=== PATIENT | male | born 1970 | race Caucasian/White ===

== ENCOUNTER 2017-02-21 21:52 | Emergency (ER) | payer OTHER ==
[~2017-02-21] VITALS: Ht 177.8 cm; Wt 79.5 kg
[2017-02-21 21:53] VITALS: Ht 177.8 cm; Wt 79.5 kg
[2017-02-22 01:15] LABS: ADD SCAN DIFF NO
[2017-02-22 01:34] LABS: BASOPHIL # 0.1 10^3/ul (0.0-0.1); EOSINOPHILS # 0.4 10^3/ul (0.0-0.5); EOSINOPHILS % 4.2 % (0.0-7.0); HEMATOCRIT 47.8 % (42.0-52.0); HEMOGLOBIN 16.5 g/dl (14.0-18.0); LYMPHOCYTES # 3.6 10^3/ul (0.8-2.9); LYMPHOCYTES % 36.8 % (15.0-51.0); MEAN CORPUSCULAR HEMOGLOBIN 30.4 pg (29.0-33.0); MEAN CORPUSCULAR HGB CONC 34.5 g/dl (32.0-37.0); MEAN CORPUSCULAR VOLUME 88.2 fl (82.0-101.0); MEAN PLATELET VOLUME 10.4 fl (7.4-10.4); MONOCYTE # 0.6 10^3/ul (0.3-0.9); MONOCYTES % 6.3 % (0.0-11.0); NEUTROPHILS % 51.4 % (39.0-77.0); PLATELET COUNT 263 10^3/UL (140-415); RED BLOOD COUNT 5.42 10^6/ul (4.70-6.10); RED CELL DISTRIBUTION WIDTH 12.6 % (11.5-14.5); WHITE BLOOD COUNT 9.7 10^3/ul (4.8-10.8)
[2017-02-22 01:40] LABS: INR 0.92; PROTIME 12.4 Sec (12.2-14.2)
[2017-02-22 01:41] LABS: PARTIAL THROMBOPLASTIN TIME 27.7 Sec (25.0-35.0)
[2017-02-22 01:43] LABS: ALANINE AMINOTRANSFERASE 47 IU/L (13-69); ALBUMIN 4.8 g/dl (3.3-4.9); ALKALINE PHOSPHATASE 64 IU/L (42-121); ANION GAP 13 (8-16); ASPARTATE AMINO TRANSFERASE 33 IU/L (15-46); BILIRUBIN,INDIRECT 0.2 mg/dl (0-1.1); BILIRUBIN,TOTAL 0.2 mg/dl (0.2-1.3); BLOOD UREA NITROGEN 20 mg/dl (7-20); CALCIUM 9.3 mg/dl (8.4-10.2); CARBON DIOXIDE 26 mmol/L (21-31); CHLORIDE 104 mmol/L (97-110); CREATININE 1.19 mg/dl (0.61-1.24); GLUCOSE 86 mg/dl (70-220); POTASSIUM 3.8 mmol/L (3.5-5.1); SODIUM 139 mmol/L (135-144)
[2017-02-22 01:54] LABS: B-TYPE NATRIURETIC PEPTIDE < 11 PG/ML (0-125); TROPONIN-I < 0.012 ng/ml (0.00-0.12)
[2017-02-22] MEDS ORDERED: PRED20TA PO (02:14)
[2017-02-22] MEDS ORDERED: ALBU18HF INHALATION (02:14)
--- NOTE | 2017-02-22 02:14 | ERD ---
ER Documentation Chief Complaint Date/Time DATE: 02/22/17 TIME: 02:12 Chief Complaint SUDDEN INTERMITTENT CP DESCRIBED SHARP AND TIGHT WITH SOB X 2 DAYS HPI This is a 46-year-old male that shortness of breath and cough for the past 2 days. He noticed sharp chest pain earlier today. This happened after a cough. No nausea no vomiting no chills. No other current complaints. Pain is mild to moderate intensity reproducible to the touch per the patient worse with movement. ROS All systems reviewed and are negative except as per history of present illness. Allergies Allergies: Coded Allergies: No Known Allergy (Unverified , 02/22/17) PMhx/Soc History of Surgery: Yes (appendectomy) Anesthesia Reaction: No Hx Neurological Disorder: No Hx Respiratory Disorders: No Hx Cardiac Disorders: No Hx Psychiatric Problems: No Hx Miscellaneous Medical Probl: No Hx Alcohol Use: No Hx Substance Use: No Hx Tobacco Use: Yes (quit) Smoking Status: Former smoker Physical Exam Vitals Vital Signs Date Time Temp Pulse Resp B/P Pulse Ox O2 Delivery O2 Flow Rate FiO2 02/22/17 00:25 75 16 116/76 98 Room Air 02/21/17 21:53 96.5 93 18 136/87 98 Physical Exam Const: [] Head: Atraumatic Eyes: Normal Conjunctiva ENT: Normal External Ears, Nose and Mouth. Neck: Full range of motion..~ No meningismus. Resp: Clear to auscultation bilaterally Cardio: Regular rate and rhythm, no murmurs Abd: Soft, non tender, non distended. Normal bowel sounds Skin: No petechiae or rashes Back: No midline or flank tenderness Ext: No cyanosis, or edema Neur: Awake and alert Psych: Normal Mood and Affect Result Diagram: 02/22/17 0037 02/22/17 0037 Results 24 hrs Laboratory Tests Test 02/22/17 00:37 White Blood Count 9.710^3/ul Red Blood Count 5.4210^6/ul Hemoglobin 16.5g/dl Hematocrit 47.8% Mean Corpuscular Volume 88.2fl Mean Corpuscular Hemoglobin 30.4pg Mean Corpuscular Hemoglobin Concent 34.5g/dl Red Cell Distribution Width 12.6% Platelet Count 41884^3/UL Mean Platelet Volume 10.4fl Neutrophils % 51.4% Lymphocytes % 36.8% Monocytes % 6.3% Eosinophils % 4.2% Basophils % 1.0% Nucleated Red Blood Cells % 0.0/100WBC Neutrophils # 5.010^3/ul Lymphocytes # 3.610^3/ul Monocytes # 0.610^3/ul Eosinophils # 0.410^3/ul Basophils # 0.110^3/ul Nucleated Red Blood Cells # 0.010^3/ul Prothrombin Time 12.4Sec Prothrombin Time Ratio 1.0 INR International Normalized Ratio 0.92 Activated Partial Thromboplast Time 27.7Sec Sodium Level 139mmol/L Potassium Level 3.8mmol/L Chloride Level 104mmol/L Carbon Dioxide Level 26mmol/L Anion Gap 13 Blood Urea Nitrogen 20mg/dl Creatinine 1.19mg/dl Glucose Level 86mg/dl Calcium Level 9.3mg/dl Total Bilirubin 0.2mg/dl Direct Bilirubin 0.00mg/dl Indirect Bilirubin 0.2mg/dl Aspartate Amino Transf (AST/SGOT) 33IU/L Alanine Aminotransferase (ALT/SGPT) 47IU/L Alkaline Phosphatase 64IU/L Troponin I < 0.012ng/ml B-Type Natriuretic Peptide < 11PG/ML Total Protein 8.0g/dl Albumin 4.8g/dl Globulin 3.20g/dl Albumin/Globulin Ratio 1.50 Procedures/MDM EKG: Rate/Rhythm: [Normal Sinus Rhythm] QRS, ST, T-waves: [No changes consistent w/ acute ischemia] Impression: [No evidence of ischemia or arrhythmia] Chest X-ray 1V Interpreted by me: Soft Tissue: No acute abnormalities Bones: No acute abnormalities Mediastinum/Cardiac Silhouette/Lungs: [No acute abnormalities] Patient's thoracic symptoms have stabilized while in the department and are stable for outpatient follow up. Exam and work up not consistent w/ ischemia, arrhythmia, PE or dissection. Symptomology consistent with acute bronchitis. At this point is clinically stable for outpatient management. Discharged home with albuterol along with prednisone. Return for worsening symptoms. Departure Diagnosis: Primary Impression: Chest pain Chest pain type: chest pain on breathing Qualified Code: R07.1 - Chest pain on breathing Additional Impression: Acute bronchitis Bronchitis organism: unspecified organism Qualified Code: J20.9 - Acute bronchitis, unspecified organism Condition: Stable NADIA COBOS Feb 22, 2017 02:14
[2017-02-22 02:33] VITALS: BP 106/72; PULSE 70; RESP 16; TEMP 97.9
--- NOTE | 2017-02-22 03:25 | RADRPT ---
PROCEDURE: XR Chest. CLINICAL INDICATION: Chest Pain. TECHNIQUE: Portable single view of the chest COMPARISON: None. FINDINGS: The cardiomediastinal silhouette appears within normal limits. The lungs are clear and no pleural e ffusion or significant edema is seen. No bony abnormality is seen. IMPRESSION: No definite acute pulmonary disease. RPTAT: [facility]BE Maddie Poe Physician Date Time Electronically viewed and signed by Maddie Poe, Physician on 02/22/2017 03:25 LE/
== END 2017-02-22 02:34 | disposition home or self-care (01) ==
LOC: E/R 21:52
DX: R07.1 Chest pain on breathing (principal); J20.9 Acute bronchitis, unspecified; R06.02 Shortness of breath; Z87.891 Personal history of nicotine dependence
CPT/HCPCS: 36415; 71010; 80053; 83880; 84484; 85025; 85610; 85730; 93005; Z7502

== ENCOUNTER 2017-04-10 14:32 | Emergency (ER) | payer OTHER ==
[~2017-04-10] VITALS: Ht 177.8 cm; Wt 77.0 kg
[~2017-04-10 14:32] MED LIST: ALBU18HF INHALATION; PRED20TA PO
[2017-04-10 14:34] VITALS: Ht 177.8 cm; Wt 77.0 kg
--- NOTE | 2017-04-10 14:59 | ERD ---
ER Documentation Chief Complaint Date/Time DATE: 04/10/17 TIME: 14:58 Chief Complaint COUGH , SOB X 1 WEEK HPI Patient is a 46-year-old male who is complaining of dry cough that he has had for 1 week. He also admits to shortness of breath. His cough is worse at night. He states he feels like he has had a fever but he does not think he has had one. Denies any hemoptysis or unplanned weight loss. Denies any night sweats. He has not taken any medications for this. He has had similar symptoms in the past and diagnosed with bronchitis. ROS All systems reviewed and are negative except as per history of present illness. Medications Home Meds Active Scripts Promethazine HCl/Codeine (Prometh-Codein 6.25-10 mg/5 ml) 5 Ml Syrup, 5 ML PO QHS, #4 OZ Prov:ALEJANDRO AREVALO PA-C 04/10/17 Azithromycin* (Zithromax*) 250 Mg Tablet, 250 MG PO .ZPACK DIRECTED, #6 TAB TAKE 500 MG (2 TABS) THE FIRST DAY THEN 250 MG (1 TAB) DAYS 2-5 Prov:ALEJANDRO AREVALO PA-C 04/10/17 Albuterol Sulfate* (Ventolin HFA*) 18 Gm Hfa.aer.ad, 2 PUFF INHALATION Q4H, #1 INHALER Prov:NADIA COBOS 02/22/17 Prednisone* (Prednisone*) 20 Mg Tab, 40 MG PO DAILY for 4 Days, TAB Prov:NADIA COBOS 02/22/17 Allergies Allergies: Coded Allergies: No Known Allergy (Unverified , 02/22/17) PMhx/Soc History of Surgery: Yes (appendectomy) Anesthesia Reaction: No Hx Neurological Disorder: No Hx Respiratory Disorders: No Hx Cardiac Disorders: No Hx Psychiatric Problems: No Hx Miscellaneous Medical Probl: No Hx Alcohol Use: No Hx Substance Use: No Hx Tobacco Use: Yes (quit) Smoking Status: Former smoker FmHx Family History: No diabetes Physical Exam Vitals Vital Signs Date Time Temp Pulse Resp B/P Pulse Ox O2 Delivery O2 Flow Rate FiO2 04/10/17 14:34 98.6 98 18 136/86 97 Physical Exam General: well developed, well nourished, alert, nontoxic, no distress Head: normocephalic, atraumatic Eyes: PERRL, normal conjunctiva Neck: Supple, nontender, no lymphadenopathy, no midline tenderness Oropharynx: no tonsilar erythema or edema, uvula midline, no exudates, no kissing tonsils, no drooling Respiratory: Clear to auscaultation bilaterally, speaks in full sentences, no use of accesory muscles or labored breathing, no rales, ronchi, or wheezing Cardiovascular: RRR, No murmurs GI: soft, non tender, non distended, negative murphys sign, negative mcburneys point tenderness, no cva tenderness bilaterally, no rebound or guarding Back: no midline tenderness, no step offs or bony abnormalities, sensation to light touch in tact Extremities: moving all extremities normally, normal gait, no edema Procedures/MDM 46-year-old male presents with cough and shortness of breath for a week. He is afebrile his vital signs are within normal limits. He does appear very anxious in examination room and there is most likely an anxiety component to his symptoms. Chest x-ray was ordered. X-ray unremarkable. Patient was discharged with cough syrup and a [id number] prescription for azithromycin. Recommend he only begin azithromycin if his symptoms worsen which she agrees. Recommended this patient follow up with her primary care doctor within 48 hours or return to the emergency room for any worsening of symptoms. However this time I do believe there is suitable for outpatient management. I answered all their questions and they agreed with the plan and were discharged home. Departure Diagnosis: Primary Impression: Bronchitis Condition: Stable ALEJANDRO AREVALO PA-C Apr 10, 2017 14:59
--- NOTE | 2017-04-10 16:46 | RADRPT ---
PROCEDURE: XR Chest. CLINICAL INDICATION: Cough TECHNIQUE: A single portable view of the chest was obtained. COMPARISON: 02/22/2017 FINDINGS: The cardiomediastinal silhouette is within normal limits. The lungs and pleural spaces are clear. The soft tissues and osseous structures are unremarkable. IMPRESSION: No acute cardiopulmonary disease. RPTAT: HPNM Physician Cirilo Date Time Electronically viewed and signed by Balwinder Singh Physician on 04/10/2017 16:45 /
[2017-04-10] MEDS ORDERED: AZIT250T94 PO (16:51)
[2017-04-10] MEDS ORDERED: PROM5SYR2 PO (16:51)
== END 2017-04-10 17:08 | disposition home or self-care (01) ==
LOC: FTE 14:32
DX: J20.9 Acute bronchitis, unspecified (principal); Z87.891 Personal history of nicotine dependence
CPT/HCPCS: 71010; 99284

== ENCOUNTER 2017-06-15 06:33 | Emergency (ER) | payer OTHER ==
[~2017-06-15] VITALS: Ht 157.5 cm; Wt 80.5 kg
[~2017-06-15 06:33] MED LIST changes: +AZIT250T94 PO; +PROM5SYR2 PO
[2017-06-15 06:34] VITALS: Ht 157.5 cm; Wt 80.5 kg
[2017-06-15] MEDS ORDERED: AMOX1TAB10 PO (07:32)
--- NOTE | 2017-06-15 12:14 | ERA ---
ER Documentation Chief Complaint Date/Time DATE: 06/15/17 TIME: 12:07 Chief Complaint flu like symptoms x [address], chills HPI Otherwise healthy 46-year-old male presents to the ED with chief complaints of pharyngitis and fever and chills. Patient was evaluated and diagnosed with bronchitis 1 month ago and given a prescription for azithromycin to use as needed if symptoms did not resolve. Patient does not remember if he ended up taking those antibiotics. Patient now reports a mild dry cough. Has not taken any medications to relieve current symptoms. Denies difficulty breathing, dysphagia, change in voice, drooling, fatigue, oral swelling, ear pain, or meningismus. Patients vaccination status is up to date. No recent travel. Patient has no other complaints and describes no other associated manifestations. Nursing notes have been reviewed and are consistent with history given. ROS All systems reviewed and are negative except as per history of present illness. Medications Home Meds Active Scripts Amoxicillin/Potassium Clav (Amox-Clav 875-125 mg Tablet) 875-125 mg Tab, 1 TAB PO BID for 5 Days, #10 TAB Prov:CINDI JEREZ PA-C 06/15/17 Promethazine HCl/Codeine (Prometh-Codein 6.25-10 mg/5 ml) 5 Ml Syrup, 5 ML PO QHS, #4 OZ Prov:ALEJANDRO AREVALO PA-C 04/10/17 Azithromycin* (Zithromax*) 250 Mg Tablet, 250 MG PO .ZPACK DIRECTED, #6 TAB TAKE 500 MG (2 TABS) THE FIRST DAY THEN 250 MG (1 TAB) DAYS 2-5 Prov:ALEJANDRO AREVALO PA-C 04/10/17 Albuterol Sulfate* (Ventolin HFA*) 18 Gm Hfa.aer.ad, 2 PUFF INHALATION Q4H, #1 INHALER Prov:NADIA COBOS 02/22/17 Prednisone* (Prednisone*) 20 Mg Tab, 40 MG PO DAILY for 4 Days, TAB Prov:NADIA COBOS 02/22/17 Allergies Allergies: Coded Allergies: No Known Allergy (Unverified , 06/15/17) PMhx/Soc History of Surgery: Yes (appendectomy) Anesthesia Reaction: No Hx Neurological Disorder: No Hx Respiratory Disorders: No Hx Cardiac Disorders: No Hx Psychiatric Problems: No Hx Miscellaneous Medical Probl: No Hx Alcohol Use: No Hx Substance Use: No Hx Tobacco Use: Yes (quit) Smoking Status: Former smoker Physical Exam Vitals Vital Signs Date Time Temp Pulse Resp B/P Pulse Ox O2 Delivery O2 Flow Rate FiO2 06/15/17 06:34 97.7 77 18 124/79 99 Physical Exam Const: Healthy-appearing, well-nourished, well-developed, no acute distress. Throat: Erythematous oropharynx. No exudates visualized. Mild enlargement of the tonsils bilaterally. Moist mucous membranes. Neck: Tender anterior cervical lymphadenopathy palpated bilaterally. No posterior cervical lymphadenopathy, masses or goiter palpated. Trachea midline. Full range of motion. Supple. ~ No meningismus. Skin: No petechiae or rashes. No ulcer, induration, jaundice. Good turgor. Resp: No dyspnea, stridor, tripoding or drooling. Good air movement. Clear to auscultation bilaterally. Head: Normocephalic, Atraumatic. Eyes: Non-injected; No scleral erythema, discharge or foreign body. EOMI bilaterally. PERRLA. Ears: Normal External Ears, EACs clear, TM normal bilaterally without erythema. Nose: Normal nose without discharge or septal deviation. Mild tenderness to palpation of the frontal sinuses. Cardio: Regular rate and rhythm; No murmurs, gallops or rubs auscultated. No JVD grossly observed. Radial and posterior tibial pulses 2+ bilaterally. Capillary refill less than 2 seconds. Abd: Soft, non tender, non distended. No guarding, masses. Normal bowel sounds. No McBurney's point tenderness. MS: Normal motor strength, normal tone with gross examination. Back: No midline, flank or CVA tenderness. Ext: No cyanosis, edema or palpable cord. Normal movement of all extremities grossly observed. Neur: Awake, alert and oriented x3. Neurovascularly intact bilaterally. Psych: Normal Mood and Affect. Procedures/MDM Patient presents with a chief complaint of pharyngitis as described in history and physical examination. Physical examination revealed clear breath sounds. Little suspicion for pneumonia. Due to possible recent antibiotic use and duration of symptoms patient was prescribed Augmentin p.o. 10 days for sinusitis, pharyngitis.I have no suspicion for ACS, pulmonary embolism, meningitis or other serious bacterial infection. No suspicion for endangerment of the airway. I have spoke with the patient regarding their condition and future management. They have verbally responded that they understand their status and treatment plan. The patients vitals are stable, and their current condition is appropriate for discharge. The patient will be given discharge instructions with return precautions. Departure Diagnosis: Primary Impression: Pharyngitis Qualified Code: J02.9 - Pharyngitis, unspecified etiology Additional Impressions: Sinusitis Qualified Code: J01.10 - Acute frontal sinusitis, recurrence not specified Bronchitis Condition: Stable Patient Instructions: Pharyngitis, Viral Additional Instructions: Follow up with your PCP within the next 1-3 days for a more thorough evaluation and a possible referral to a specialist. Return the the emergency department immediately if symptoms worsen or change. If you have any questions regarding medications, ask your pharmacist or us before you leave. If any adverse reactions occur while taking your medications, discontinue the treatment and return to the emergency department immediately. Consider [id number] Claritin or Sudafed. Take your medications as directed, and complete the entire course of treatment. CINDI JEREZ PA-C Jun 15, 2017 12:14
== END 2017-06-15 07:50 | disposition home or self-care (01) ==
LOC: FTE 06:33
DX: J01.10 Acute frontal sinusitis, unspecified (principal); J40 Bronchitis, not specified as acute or chronic; Z87.891 Personal history of nicotine dependence
CPT/HCPCS: 99283

== ENCOUNTER 2018-06-29 23:32 | Emergency (ER) | END 2018-06-30 01:27 | disposition home or self-care (01) ==